=== PATIENT | male | born 1950 | race Caucasian/White ===

== ENCOUNTER 2017-09-22 19:38 | Emergency (ER) | payer OTHER, MEDICARE ==
[~2017-09-22] VITALS: Ht 177.8 cm; Wt 95.3 kg
[~2017-09-22 19:38] MED LIST: AMARYL 2 MG2 MG PO; ATENOLOL25 MG PO; ATORVASTATIN CA40 MG PO; LEVITRA20 MG PO; METFORMIN ER500 MG PO; PRADAXA150 MG PO; RAMIPRIL2.5 MG PO; TESTIM 1% TOP; TRADJENTA5 MG PO
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
[2017-09-22] MEDS ORDERED: CYCLOBENZAPRINE10 M1 PO (21:44)
[2017-09-22 21:58] VITALS: BP 150/73
== END 2017-09-22 21:51 ==
LOC: ERH 19:38
DX: M54.2 Cervicalgia (principal); M54.6 Pain in thoracic spine; M54.5 Low back pain; V43.52XA Car driver injured in collision with other type car in traffic accident, initial encounter; Y92.410 Unspecified street and highway as the place of occurrence of the external cause
CPT/HCPCS: 72050; 72070; 72100